=== PATIENT | male | born 2000 ===

== ENCOUNTER 2022-06-08 04:08 | Emergency (ER) | payer BC, OTHER ==
[2022-06-08 05:32] LABS: BARBITURATE SCREEN,URINE NEGATIVE (NEGATIVE); BENZODIAZEPINES SCREEN,URINE NEGATIVE (NEGATIVE); EDDP,URINE SCREEN NEGATIVE (NEGATIVE); TCA SCREEN,URINE NEGATIVE (NEGATIVE); THC SCREEN,URINE 50 NG/ML POSITIVE (NEGATIVE)
[2022-06-08 05:37] LABS: BUPRENORPHINE SCREEN,URINE NEGATIVE (NEGATIVE)
== END 2022-06-08 05:15 | disposition home or self-care (01) ==
LOC: LL.ED 04:08
DX: Z02.83 Encounter for blood-alcohol and blood-drug test (principal)
CPT/HCPCS: 80305-QW; 99282; 99283